=== PATIENT | female | born 1985 | race Caucasian/White ===

== ENCOUNTER 2023-03-25 00:05 | Emergency (ER) | payer OTHER ==
[2023-03-25] MEDS ORDERED: IBUPROFEN 600 MG TABLET (FP) PO ONE (00:07)
[2023-03-25 00:25] VITALS: BP 104/49; PULSE 68; RESP 18; TEMP 98.9; BMI 25.7
== END 2023-03-25 01:56 | disposition home or self-care (01) ==
LOC: FER 00:05
DX: S92.514A Nondisplaced fracture of proximal phalanx of right lesser toe(s), initial encounter for closed fracture (principal); S93.104A Unspecified dislocation of right toe(s), initial encounter; M79.674 Pain in right toe(s); W22.8XXA Striking against or struck by other objects, initial encounter; Y93.9 Activity, unspecified; Y92.009 Unspecified place in unspecified non-institutional (private) residence as the place of occurrence of the external cause
CPT/HCPCS: 73630-TC-RT-FY; 81025; 99283-25